=== PATIENT | female | born 1950 | race Caucasian/White ===

== ENCOUNTER 2017-05-25 03:13 | Emergency (ER) | payer MEDICARE, OTHER ==
[2017-05-25] MEDS ORDERED: Sodium Chloride 0.9% 1,000 ML IV ONE (03:35)
[2017-05-25 04:10] VITALS: BP 124/50
[2017-05-25 04:29] LABS: CHLORIDE,CL 105 mmol/L (98-107); SODIUM,NA 139 mmol/L (136-145)
[2017-05-25] MEDS ORDERED: methylPREDNISolone Sodium Succinate 125 MG/2 ML SDV IV ONE (04:46)
[2017-05-25] MEDS ORDERED: Take Home: Acetaminophen/HYDROcodone 325-10 MG, 5 Tab Pack PO ONE (04:46)
[2017-05-25] MEDS ORDERED: Take Home: Cyclobenzaprine 10 MG Tab, 4 Tab Pack PO ONE (04:48)
--- NOTE | 2017-05-26 09:04 | ER ---
Date of Service: 05/25/2017 SUBJECTIVE: Mercedes presents to the emergency room with complaints of acute on chronic low back pain. The patient has a history of spondylosis and chronic SI joint pain. She states that she has been experiencing this chronic pain for approximately the past 3 to 4 years. She states that she did have some epidural steroid injections recently at this facility. She did have relief initially but states that now the discomfort has re-intensified. She denies any significant trauma to her back. She states that tonight she was getting up to use the bathroom and in the process of moving to do that experienced a severe discomfort which caused her to have a syncopal episode. Her subsequently called 911, and the patient was transported to our facility by [facility]. The patient states that she is not experiencing any saddle anesthesia or urinary or fecal incontinence or retention. She states that the discomfort is similar to what she has experienced in the past, albeit with increased intensity. EMS did administer 1 mg of Dilaudid as well as Valium for this patient's back discomfort prior to arrival to the emergency room. PAST MEDICAL HISTORY: 1. Chronic low back pain. 2. History of opiate overdose. I do not have a medical record for this, but this is noted on her past medical history. 3. Dyslipidemia. 4. Osteoarthritis. 5. Spondylosis. 6. Depression. MEDICATIONS: 1. Valerian root. 2. Simvastatin. 3. Paxil. 4. Multivitamin. 5. Melatonin. 6. Magnesium chloride. 7. Levothyroxine. 8. Boniva. 9. Glucosamine and chondroitin. 10.Flaxseed oil. 11.Fish oil. 12.Vitamin D3. 13.Calcium plus D. ALLERGIES: 1. Nickel. 2. Secobarbital. REVIEW OF SYSTEMS: General: Denies any fever or chills. HEENT: No sore throat, rhinorrhea, or congestion. Respiratory: No shortness of breath. Cardiac: Denies any substernal chest pain. Gastrointestinal: No nausea, vomiting, or diarrhea. No melena, hematochezia, or hematemesis. Genitourinary: Denies any dysuria. Musculoskeletal: Again complains of severe low back pain and muscle spasm. Neurologic: Positive for syncopal episode. It is unknown how long the episode lasted as the patient's did not accompany her to the ER. PHYSICAL EXAMINATION: General: This is a 67-year-old female patient, who is in no significant distress. Vital Signs: Blood pressure is 124/50, heart rate 77, temp is 37.2, respiratory rate is 16, and O2 saturations 92% on room air. Skin: Warm, pale, and dry. HEENT: Head is normocephalic, atraumatic. Eyes, PERRLA. Extraocular movements are intact. Mouth, oral mucosa is moist. Lungs: Clear to auscultation. Heart: Regular rate and rhythm. Abdomen: Soft, nontender. There is no hepatosplenomegaly noted. There is no masses noted. Extremities: Without edema. Neurologic: The patient is alert, oriented, and answers all questions appropriately. Her speech is fluent. Her gait is within normal limits. Musculoskeletal: She does have tenderness to the paraspinal muscles of lumbar spine. No obvious step-offs or deformity noted to the spine. No obvious trauma noted. DIAGNOSTIC DATA: EKG was obtained showing a sinus rhythm without any acute ST or T-wave abnormalities. LABORATORY DATA: Hematology; WBCs 11.8, hemoglobin is 11.1, platelets are 319. Chemistry; sodium is 139, potassium is 3.6, chloride is 105, bicarb is 28, BUN is 12, creatinine is 0.8. Creatinine clearance is 54.9. GFR is greater than 60. Glucose is 125, calcium is 8.2, corrected calcium is 8.68. Total bilirubin is 1.3, AST is 16, ALT is 24, alkaline phosphatase is 76. Troponin is less than 0.017. C-reactive protein is 3.4, total protein is 7.1, albumin is 3.4. ASSESSMENT: Acute on chronic low back pain. PLAN: The patient will be discharged. I did start her on a short course of [place] 10/325 with instructions to take 1 to 2 every 4 to 6 hours as needed for pain. She is on tizanidine which I did have her discontinue. We will start her on Flexeril 10 mg 3 times daily as needed for muscle spasm. She was advised to ambulate as much as possible. It is imperative that she moves around as her muscles will continue to spasm worse or more if she lays in bed or sits. All questions were answered. MWK: 05/25/2017 12:04:37 MODL: 05/25/2017 15:52:20 /[id number]
== END 2017-05-25 05:22 | disposition home or self-care (01) ==
LOC: VM.ED 03:13
DX: G89.29 Other chronic pain (principal); M54.5 Low back pain; E78.5 Hyperlipidemia, unspecified; M19.90 Unspecified osteoarthritis, unspecified site; F32.9 Major depressive disorder, single episode, unspecified; Z91.09 Other allergy status, other than to drugs and biological substances; Z88.8 Allergy status to other drugs, medicaments and biological substances
CPT/HCPCS: 36415; 80053; 84484; 85025; 86140; 93005; 96365; 96375; 99284; A9270; J2930; J7030

== ENCOUNTER 2022-03-09 14:19 | Emergency (ER) | payer MEDICARE, OTHER ==
[2022-03-09] MEDS ORDERED: Ketorolac 30 MG/ML SDV IM ONE (14:41)
[2022-03-09] MEDS ORDERED: Orphenadrine 60 MG/2 ML Inj IM ONE (14:42)
[2022-03-09] MEDS ORDERED: Take Home: Cyclobenzaprine 10 MG Tab, 4 Tab Pack PO ONE (14:43)
[2022-03-09 14:44] VITALS: BP 176/79; PULSE 74
[2022-03-09] MEDS ORDERED: Take Home: Acetaminophen/Codeine 300 MG/30 MG, 5 Tab Pack PO ONE (14:44)
== END 2022-03-09 15:05 | disposition home or self-care (01) ==
LOC: VM.ED 14:19
DX: G89.29 Other chronic pain (principal); M54.50 Low back pain, unspecified; E78.00 Pure hypercholesterolemia, unspecified; I10 Essential (primary) hypertension; E03.9 Hypothyroidism, unspecified; Z91.048 Other nonmedicinal substance allergy status; Z88.8 Allergy status to other drugs, medicaments and biological substances; Z79.899 Other long term (current) drug therapy
CPT/HCPCS: 96372; 99283; A9270; J1885; J2360

== ENCOUNTER 2024-07-31 09:28 | Emergency (ER) | payer MEDICARE, OTHER ==
[2024-07-31 09:54] LABS: BASOPHILS PERCENT AUTO 0.1 % (0.2-1.2); EOSINOPHILS ABSOLUTE AUTO 0.1 x10^3/uL (0.0-0.5); EOSINOPHILS PERCENT AUTO 0.3 % (0.0-4.0); HEMATOCRIT 31.5 % (33.0-47.0); HEMOGLOBIN 10.3 g/dL (12.0-16.0); IMMATURE GRAN ABSOLUTE AUTO 0.04 x10^3/uL (0.00-0.07); LYMPHOCYTES ABSOLUTE AUTO 2.4 x10^3/uL (1.0-4.8); LYMPHOCYTES PERCENT AUTO 13.6 % (25.0-50.0); MEAN CORPUSCULAR HEMOGLOBIN 28.6 pg (26.0-32.0); MEAN CORPUSCULAR HGB CONC 32.7 g/dL (32.0-36.0); MEAN CORPUSCULAR VOLUME 87.5 fL (78.0-93.0); MONOCYTES ABSOLUTE AUTO 1.1 x10^3/uL (0.0-0.8); MONOCYTES PERCENT AUTO 6.3 % (2.0-11.0); NEUTROPHILS ABSOLUTE AUTO 13.9 x10^3/uL (1.8-7.7); NEUTROPHILS PERCENT AUTO 79.5 % (50.0-80.0); PLATELET COUNT,PLT 425 x10^3/uL (130-400)
[2024-07-31 09:57] LABS: WHITE BLOOD CELL COUNT,WBC 17.4 x10^3/uL (4.0-10.0)
[2024-07-31 10:22] LABS: A/G RATIO 1.03; ALANINE AMINOTRANSFERASE,ALT 35 U/L (14-59); ALBUMIN 3.2 g/dL (3.4-5.0); ALKALINE PHOSPHATASE 91 U/L (46-116); ASPARTATE AMNIOTRANSFERASE,AST 23 U/L (15-37); BILIRUBIN TOTAL 0.9 mg/dL (0.2-1.0); BLOOD UREA NITROGEN,BUN 12 mg/dL (7-18); CALCIUM 8.5 mg/dL (8.5-10.1); CARBON DIOXIDE,CO2 30 mmol/L (21-32); CHLORIDE,CL 105 mmol/L (98-107); CREATININE 0.7 mg/dL (0.55-1.02); GLUCOSE RANDOM 115 mg/dL (70-99); MAGNESIUM 1.8 mg/dL (1.8-2.4); POTASSIUM,K 5.1 mmol/L (3.5-5.1); PROTEIN TOTAL,TP 6.3 g/dL (6.4-8.2); SODIUM,NA 142 mmol/L (136-145); TSH ULTRASENSITIVE 1.744 uIU/mL (0.358-3.74)
[2024-07-31 10:23] LABS: ANION GAP 12.1 mmol/L (5-15); C-REACTIVE PROTEIN < 0.50 mg/dL (<=0.50); ESTIMATED GFR 90 mL/min (>=60)
[2024-07-31 10:43] LABS: APPEARANCE,URINE SLIGHTLY CLOUDY (CLEAR); BILIRUBIN,URINE NEGATIVE (NEGATIVE); COLOR,URINE YELLOW (YELLOW); GLUCOSE,URINE NEGATIVE (NEGATIVE); KETONES,URINE NEGATIVE (NEGATIVE); LEUKOCYTE ESTERASE,URINE MODERATE (NEGATIVE); NITRITE,URINE NEGATIVE (NEGATIVE); OCCULT BLOOD,URINE SMALL (NEGATIVE); PH,URINE 8.5 (5.0-8.0); PROTEIN,URINE TRACE mg/dL (NEGATIVE); UROBILINOGEN,URINE 0.2 EU/dL (0.2)
[2024-07-31 10:49] LABS: BACTERIA,URINE FEW /HPF (NOT SEEN); MUCUS,URINE FEW /LPF (NOT SEEN); SQUAMOUS EPITHELIAL CELLS,UR FEW /HPF (NOT SEEN); WBC,URINE 30-40 /HPF (NOT SEEN)
[2024-07-31 18:44] VITALS: BP 122/49; PULSE 63
== END 2024-07-31 11:08 | disposition home or self-care (01) ==
LOC: VM.ED 09:28
DX: N39.0 Urinary tract infection, site not specified (principal); R55 Syncope and collapse; E78.00 Pure hypercholesterolemia, unspecified; Z90.49 Acquired absence of other specified parts of digestive tract; Z79.899 Other long term (current) drug therapy; Z79.82 Long term (current) use of aspirin; Z88.8 Allergy status to other drugs, medicaments and biological substances; Z91.048 Other nonmedicinal substance allergy status
CPT/HCPCS: 36415; 80053; 81001; 83735; 84443; 84484; 85025; 86140; 87086; 87088; 87186; 99284